=== PATIENT | female | born 1965 | race Caucasian/White ===

== ENCOUNTER 2016-05-26 07:52 | Emergency (ER) | payer BC ==
--- NOTE | 2016-05-26 08:13 | Emergency Department Record ---
History of Present Illness - General Chief complaint: Vomiting Stated complaint: VOMITING/REACTION TO MEDICATION Time Seen by Provider: 05/26/16 08:09 - Related Data Home Medications Medication Instructions Recorded Confirmed Last Taken Topiramate [Topamax] 75 mg PO QHS 02/04/14 05/26/16 05/26/16 Fluticasone Propionate [Flonase 9.9 ml NS ASDIR PRN 01/30/15 05/26/16 05/26/16 Allergy Relief] Norethindrone-E.estradiol-Iron 1 each PO DAILY 01/30/15 05/26/16 05/26/16 [Minastrin 24 Fe Chewable Tab] Amlodipine Besylate 5 mg PO QD tab 03/19/15 05/26/16 05/26/16 Allergies Allergy/AdvReac Type Severity Reaction Status Date / Time amoxicillin Allergy Mild PT UNSURE Verified 10/21/15 17:25 OF REACTION Penicillins [PENICILLINS] Allergy Unknown HIVES Verified 10/21/15 17:25 Sulfa (Sulfonamide Allergy Unknown HIVES Verified 10/21/15 17:25 Antibiotics) [SULFA(SULFONAMIDE ANTIBIOTICS)] doxacillin Allergy Intermediate VOMITING Uncoded 10/21/15 17:23 Past Medical History - SOCIAL HISTORY Smoking Status: Never smoker - RESPIRATORY Hx Respiratory Disorders: Yes Hx Bronchitis: Yes (2012) - CARDIOVASCULAR Hx Cardio Disorders: Yes Hx Hypertension: Yes - NEURO Hx Neuro Disorders: Yes Hx Dizziness: Yes (had therapy after an inner ear problem) Hx Headaches: Yes Hx of Migraines: Yes - GI Hx GI Disorders: No - Hx Genitourinary Disorders: No Comment:: lmp 'years ago'; but on bcp last 3 years to control irregular bleeding - ENDOCRINE Hx Endocrine Disorders: No - MUSCULOSKELETAL Hx Musculoskeletal Disorders: Yes Hx Arthritis: Yes (?knee rt) - PSYCH Hx Psych Problems: Yes Hx Anxiety: Yes - HEMATOLOGY/ONCOLOGY Hx Hematology/Oncology Disorders: No Family Medical History Hx Cancer: Father, Mother Hx Diabetes: Mother Disposition Forms: Patient Portal Access
--- NOTE | 2016-05-26 08:26 | Emergency Department Record ---
History of Present Illness - General Chief complaint: Vomiting Stated complaint: VOMITING/REACTION TO MEDICATION Time Seen by Provider: 05/26/16 08:09 Mode of Arrival: Ambulatory - History of Present Illness Initial comments: Patient had a infected furuncle on her right chin and seen Kaylyn and she expressed it about 20 days and she had 10 days of levaquin it was doing better and than started to come back and 7 days ago restarted on levaquin 750mg and she became nauseated and tod to cut it half and still nauseated and 2 days ago she stopped the levaquin and she had diarrhea times one today and times one yesterday and vomited times one today. She feels the furuncle is coming back and she is nauseated. Onset/Timin -: Week(s) Improves with: Medication Worsens with: None Context: Recent anitbiotic use Associated Symptoms: Denies other symptoms - Related Data Home Medications Medication Instructions Recorded Confirmed Last Taken Topiramate [Topamax] 75 mg PO QHS 02/04/14 05/26/16 05/26/16 Fluticasone Propionate [Flonase 9.9 ml NS ASDIR PRN 01/30/15 05/26/16 05/26/16 Allergy Relief] Norethindrone-E.estradiol-Iron 1 each PO DAILY 01/30/15 05/26/16 05/26/16 [Minastrin 24 Fe Chewable Tab] Amlodipine Besylate 5 mg PO QD tab 03/19/15 05/26/16 05/26/16 Previous Rx's Medication Instructions Recorded Clindamycin HCl [Cleocin HCl] 300 mg PO TID #30 capsule 05/26/16 Ondansetron HCl [Zofran] 8 mg PO Q6HR #15 tablet 05/26/16 Allergies Allergy/AdvReac Type Severity Reaction Status Date / Time amoxicillin Allergy Mild PT UNSURE Verified 10/21/15 17:25 OF REACTION Penicillins [PENICILLINS] Allergy Unknown HIVES Verified 10/21/15 17:25 Sulfa (Sulfonamide Allergy Unknown HIVES Verified 10/21/15 17:25 Antibiotics) [SULFA(SULFONAMIDE ANTIBIOTICS)] doxacillin Allergy Intermediate VOMITING Uncoded 10/21/15 17:23 Travel Screening - Travel/Exposure Within Last 30 Days Have you traveled within the last 30 days?: No - Travel/Exposure Within Last Year Have you traveled outside the [place] in the last year?: No - Additonal Travel Details Have you been exposed to anyone with a communicable illness?: No - Travel Symptoms Symptom Screening: None Review of Systems Reviewed: No additional complaints except as noted below Constitutional: Reports: As per HPI. Denies: Chills, Fever, Malaise, Night sweats, Weakness, Weight change Eyes: Reports: As per HPI. Denies: Eye discharge, Eye pain, Photophobia, Vision change ENT: Reports: As per HPI. Denies: Congestion, Dental pain, Ear pain, Epistaxis , Hearing loss, Throat pain Respiratory: Reports: As per HPI. Denies: Cough, Dyspnea, Hemoptysis, Stridor, Wheezes Cardiovascular: Reports: As per HPI. Denies: Arrhythmia, Chest pain, Dyspnea on exertion, Edema, Murmurs, Orthopnea, Palpitations, Paroxysmal nocturnal dyspnea, Rheumatic Fever, Syncope Endocrine: Reports: As per HPI. Denies: Fatigue, Heat or cold intolerance, Polydipsia, Polyuria Gastrointestinal: Reports: As per HPI. Denies: Abdominal pain, Constipation, Diarrhea, Hematemesis, Hematochezia, Melena, Nausea, Vomiting Genitourinary: Reports: As per HPI. Denies: Abnormal menses, Discharge, Dyspareunia, Dysuria, Frequency, Hematuria, Incontinence, Retention, Urgency Musculoskeletal: Reports: As per HPI. Denies: Arthralgia, Back pain, Gout, Joint swelling, Myalgia, Neck pain Skin: Reports: As per HPI. Denies: Bruising, Change in color, Change in hair/ nails, Lesions, Pruritus, Rash Neurological: Reports: As per HPI. Denies: Abnormal gait, Confusion, Headache, Numbness, Paresthesias, Seizure, Tingling, Tremors, Vertigo, Weakness Psychiatric: Reports: As per HPI. Denies: Anxiety, Auditory hallucinations, Depression, Homicidal thoughts, Suicidal thoughts, Visual hallucinations Hematological/Lymphatic: Reports: As per HPI. Denies: Anemia, Blood Clots, Easy bleeding, Easy bruising, Swollen glands Past Medical History - SOCIAL HISTORY Smoking Status: Never smoker - RESPIRATORY Hx Respiratory Disorders: Yes Hx Bronchitis: Yes (2012) - CARDIOVASCULAR Hx Cardio Disorders: Yes Hx Hypertension: Yes - NEURO Hx Neuro Disorders: Yes Hx Dizziness: Yes (had therapy after an inner ear problem) Hx Headaches: Yes Hx of Migraines: Yes - GI Hx GI Disorders: No - Hx Genitourinary Disorders: No Comment:: lmp 'years ago'; but on bcp last 3 years to control irregular bleeding - ENDOCRINE Hx Endocrine Disorders: No - MUSCULOSKELETAL Hx Musculoskeletal Disorders: Yes Hx Arthritis: Yes (?knee rt) - PSYCH Hx Psych Problems: Yes Hx Anxiety: Yes - HEMATOLOGY/ONCOLOGY Hx Hematology/Oncology Disorders: No Family Medical History Hx Cancer: Father, Mother Hx Diabetes: Mother Physical Exam - General General Appearance: Alert, Oriented x3, Cooperative, No acute distress - Head Head exam: Normal inspection - Eye Eye exam: Normal appearance, PERRL Pupils: Normal accommodation - ENT ENT exam: Normal exam, Mucous membranes moist, Normal external ear exam, Normal orophraynx, TM's normal bilaterally Ear exam: Normal external inspection. negative: External canal tenderness Nasal Exam: Normal inspection. negative: Discharge, Sinus tenderness Mouth exam: Normal external inspection, Tongue normal Teeth exam: Normal inspection. negative: Dental caries Throat exam: Normal inspection. negative: Tonsillar erythema, Tonsillar exudate - Neck Neck exam: Normal inspection, Full ROM. negative: Tenderness - Respiratory Respiratory exam: Normal lung sounds bilaterally. negative: Respiratory distress - Cardiovascular Cardiovascular Exam: Regular rate, Normal rhythm, Normal heart sounds - GI/Abdominal GI/Abdominal exam: Soft, Normal bowel sounds. negative: Tenderness - Rectal Rectal exam: Deferred - exam: Deferred - Extremities Extremities exam: Normal inspection, Full ROM, Normal capillary refill. negative: Tenderness - Back Back exam: Reports: Normal inspection, Full ROM. Denies: Muscle spasm, Rash noted, Tenderness - Neurological Neurological exam: Alert, Normal gait, Oriented X3, Reflexes normal - Psychiatric Psychiatric exam: Normal affect, Normal mood - Skin Skin exam: Dry, Warm, Other (red spot on the chin small and tender) Course Vital Signs 05/26/16 08:05 Temperature 97.7 F Pulse Rate 84 Respiratory 20 Rate Blood Pressure 137/80 Pulse Ox 99 - Reevaluation(s) Reevaluation #1: off work today. 05/26/16 09:40 05/26/16 09:42 Reevaluation #2: patient is feeling better . 05/26/16 09:42 Medical Decision Making - Lab Data Result diagrams: 05/26/16 09:00 05/26/16 09:00 Disposition Clinical Impression: Furuncle of face Disposition: Home, Self-Care Condition: (1) Good Instructions: Acute Nausea and Vomiting (ED), Furunculosis and Carbunculosis ( ED) Additional Instructions: follow up with Kaylyn in 5-6 days Prescriptions: Ondansetron HCl [Zofran] 8 mg PO Q6HR #15 tablet Clindamycin HCl [Cleocin HCl] 300 mg PO TID #30 capsule Forms: Patient Portal Access Time of Disposition: 08:48
[2016-05-26] MEDS ORDERED: CEFTRIAXONE SODIUM 1 GM in 0.9 % SODIUM CHLORIDE 100ML 100 ML IVPB ONE (08:37)
[2016-05-26] MEDS ORDERED: ONDANSETRON HCL IV 4 MG/2 ML VIAL IVP ONE (08:38)
[2016-05-26] MEDS ORDERED: 0.9 % SODIUM CHLORIDE 1000ML 1,000 ML IV SCH (08:45)
[2016-05-26 09:04] LABS: BASO % 0.5 % (0-6); EOS % 7.5 % (0-6); GRAN % 72.8 % (47-80); HEMATOCRIT 40.3 % (35.0-47.0); HEMOGLOBIN 13.7 gm/dl (11.6-16.0); LYMPH % 10.8 % (16-45); MEAN CORPUSCULAR HEMOGLOBIN 32.3 pg (27-33); MEAN PLATELET VOLUME 8.6 fl (7.4-10.4); MONO % 8.4 % (0-9); PLATELET COUNT 203 K/uL (130-400); RED BLOOD COUNT 4.24 M/uL (3.80-5.40); RED CELL DISTRIBUTION WIDTH 12.8 % (11.5-14.5); WHITE BLOOD COUNT W/O DIFF 4.2 K/uL (4.2-12.2)
[2016-05-26 09:16] LABS: ANION GAP 9.2 (7-16); CARBON DIOXIDE 19.8 mmol/L (22-30); CREATININE 1.1 mg/dL (0.52-1.04)
== END 2016-05-26 10:17 | disposition home or self-care (01) ==
LOC: ER 07:52
DX: L02.02 Furuncle of face (principal); R11.2 Nausea with vomiting, unspecified; R19.7 Diarrhea, unspecified
CPT/HCPCS: 99284 ×2; 96365; 96375; 96361; 85025; 80048; J2405; J7030

== ENCOUNTER 2016-08-26 10:30 | Day surgery (SDC) | payer BC ==
[~2016-08-26 10:30] MED LIST: ACETAMINOPHEN 1000MG/100 ML PREMIX IV ONE
[2016-08-26] MEDS ORDERED: HYDROMORPHONE HCL 2 MG/ML VIAL IV ONE (15:02)
[2016-08-26] MEDS ORDERED: BETAMETHASONE 6 MG/1 ML 5ML VIAL IM ONE (15:02)
[2016-08-26] MEDS ORDERED: HYDROCODONE/APAP 7.5/325MG TABLET PO ONE (15:02)
[2016-08-26] MEDS ORDERED: BUPIVACAINE 0.25% W/EPI MPF 30ML VIAL IVP ONE (15:02)
[2016-08-26] MEDS ORDERED: LIDOCAINE 2% MDV (20MG/ML) 20ML VIAL IV ONE (15:14)
[2016-08-26] MEDS ORDERED: FENTANYL PF 100MCG/2ML VIAL IV ONE (15:14)
[2016-08-26] MEDS ORDERED: PROPOFOL 10 MG/ML VIAL IV ONE (15:14)
--- NOTE | 2016-08-27 17:07 | Operative Note ---
DATE OF SURGERY: 08/26/2016 REFERRING PHYSICIAN: Laura Avina MD, FACP PREOPERATIVE DIAGNOSIS: Adhesive capsulitis of the left shoulder. POSTOPERATIVE DIAGNOSIS: Adhesive capsulitis of the left shoulder. OPERATIVE PROCEDURES: 1. Manipulation under anesthesia, left shoulder. 2. Injection, left shoulder. DESCRIPTION: This 51-year-old female was taken to the operating room and placed in the supine position on the operating room table where general anesthetic was administered. Once this had been accomplished, the shoulder was gently taken through range of motion. We found that she had approximately 70 degrees of abduction and approximately 120 degrees of forward flexion, adduction to approximately 30 degrees, and extension to approximately 45 degrees. Subsequently, the glenohumeral joint was stabilized, and gentle manipulation of the glenohumeral joint was accomplished to 120 degrees of abduction, 180 degrees of flexion, 100 degrees of external rotation, 90 degrees of internal rotation, and full adduction and extension to approximately 60 degrees. The anterior aspect of the shoulder was then prepped with alcohol and a 22-gauge spinal needle easily advanced into the glenohumeral joint. Subsequently, 2 mL of Celestone Soluspan, 4 mL of 0.25% Marcaine with epinephrine was injected without difficulty, and the sterile bandage was applied. Patient was subsequently taken to the recovery room in satisfactory condition. GROSS PATHOLOGY: This patient demonstrated a significant amount of stiffness of the left shoulder, which could not be rectified with physical therapy. Patient subsequently underwent manipulation as described above. CC: LAURA AVINA MD, FACP [facility]
== END 2016-08-26 13:35 | disposition home or self-care (01) ==
LOC: SUR 10:30
PROVIDERS: ATTEND Orthopaedic Surgery
DX: M75.02 Adhesive capsulitis of left shoulder (principal); I10 Essential (primary) hypertension
CPT/HCPCS: 23700; 20610; 01620; 81025; J3010; J1170

== ENCOUNTER 2016-11-13 13:04 | Emergency (ER) | payer BC ==
--- NOTE | 2016-11-13 13:43 | Emergency Department Record ---
History of Present Illness - General Stated Complaint: sinus congestion,dizzy,nausia Time Seen by Provider: 11/13/16 13:40 Source: Patient Mode of Arrival: Ambulatory Limitations: No limitations - History of Present Illness Initial Comments: 51 yo female presents to ED with a CC of sinus congestion symptoms for the past several days since returning from [facility] 1 week ago. Patient reports symptoms of congestion, dizziness, and generalized weakness. Patient also reports "plugged ears". Patient denies fevers, chills, cough, or sore throat symptoms. MD Complaint: Nasal congestion, Sinus pain Onset/Timin -: Days(s) Severity: Moderate Quality: Aching Consistency: Constant Improves With: Nothing Worsens With: Nothing Context: Recent travel Associated Symptoms: Denies other symptoms Treatments Prior to Arrival: Other (Allergy medications) - Related Data Home Medications Medication Instructions Recorded Confirmed Last Taken Topiramate [Topamax] 75 mg PO QHS 02/04/14 05/26/16 05/26/16 Fluticasone Propionate [Flonase 9.9 ml NS ASDIR PRN 01/30/15 05/26/16 05/26/16 Allergy Relief] Norethindrone-E.estradiol-Iron 1 each PO DAILY 01/30/15 05/26/16 05/26/16 [Minastrin 24 Fe Chewable Tab] Amlodipine Besylate 5 mg PO QD tab 03/19/15 05/26/16 05/26/16 Previous Rx's Medication Instructions Recorded Clindamycin HCl [Cleocin HCl] 300 mg PO TID #30 capsule 05/26/16 Ondansetron HCl [Zofran] 8 mg PO Q6HR #15 tablet 05/26/16 Azithromycin [Zithromax] 250 mg PO DAILY #6 tab 11/13/16 Allergies Allergy/AdvReac Type Severity Reaction Status Date / Time amoxicillin Allergy Mild PT UNSURE Verified 10/21/15 17:25 OF REACTION Penicillins [PENICILLINS] Allergy Unknown HIVES Verified 10/21/15 17:25 Sulfa (Sulfonamide Allergy Unknown HIVES Verified 10/21/15 17:25 Antibiotics) [SULFA(SULFONAMIDE ANTIBIOTICS)] doxacillin Allergy Intermediate VOMITING Uncoded 10/21/15 17:23 Review of Systems Constitutional: Reports: Weakness. Denies: Chills, Fever, Malaise, Night sweats Eyes: Denies: Eye discharge, Eye pain ENT: Reports: Congestion. Denies: Ear pain, Epistaxis Respiratory: Denies: Cough, Dyspnea Cardiovascular: Denies: Chest pain Endocrine: Denies: Fatigue, Heat or cold intolerance Gastrointestinal: Denies: Abdominal pain, Nausea, Vomiting Genitourinary: Denies: Incontinence, Retention Musculoskeletal: Denies: Arthralgia, Back pain Skin: Denies: Bruising, Change in color Neurological: Denies: Abnormal gait, Confusion, Seizure Psychiatric: Denies: Anxiety Hematological/Lymphatic: Denies: Anemia, Blood Clots Past Medical History - SOCIAL HISTORY Smoking Status: Never smoker - RESPIRATORY Hx Respiratory Disorders: Yes Hx Bronchitis: Yes (2013) - CARDIOVASCULAR Hx Cardio Disorders: Yes Hx Hypertension: Yes Hx Irregular Heartbeat: Yes (REG/IREEG HEARTBEAT) - NEURO Hx Neuro Disorders: Yes Hx Dizziness: Yes (had therapy after an inner ear problem) Hx Headaches: Yes Hx of Migraines: Yes - GI Hx GI Disorders: No - Hx Genitourinary Disorders: No Comment:: lmp 'years ago'; but on bcp last 3 years to control irregular bleeding - ENDOCRINE Hx Endocrine Disorders: No - MUSCULOSKELETAL Hx Musculoskeletal Disorders: Yes Hx Arthritis: Yes (LEFT SHOULDER AND OTHER JOINTS) Comment:: CAN'T MOVE LEFT SHOULDER - PSYCH Hx Psych Problems: Yes Hx Anxiety: Yes - HEMATOLOGY/ONCOLOGY Hx Hematology/Oncology Disorders: No Family Medical History Hx Cancer: Father, Mother Hx Diabetes: Mother Physical Exam - General General Appearance: Alert, Oriented x3, Cooperative, No acute distress Limitations: No limitations - Head Head exam: Atraumatic, Normocephalic, Normal inspection Head exam detail: negative: Abrasion, Contusion, Stevenson's sign, General tenderness, Hematoma, Laceration - Eye Eye exam: Normal appearance. negative: Conjunctival injection, Periorbital swelling, Periorbital tenderness, Scleral icterus - ENT Ear exam: Other (TMs appear clear, mild amount of fluid behind the TMs bilaterally). negative: Auricular hematoma, Auricular trauma Nasal Exam: negative: Active bleeding, Discharge, Dried blood Mouth exam: negative: Drooling, Laceration, Muffled voice, Tongue elevation - Neck Neck exam: Normal inspection. negative: Meningismus, Tenderness - Respiratory Respiratory exam: Normal lung sounds bilaterally. negative: Rales, Respiratory distress, Rhonchi, Stridor - Cardiovascular Cardiovascular Exam: Regular rate, Normal rhythm, Normal heart sounds - GI/Abdominal GI/Abdominal exam: Soft. negative: Rebound, Rigid, Tenderness - Rectal Rectal exam: Deferred - exam: Deferred - Extremities Extremities exam: Normal inspection. negative: Pedal edema, Tenderness - Back Back exam: Denies: CVA tenderness (R), CVA tenderness (L) - Neurological Neurological exam: Alert, Normal gait, Oriented X3 - Psychiatric Psychiatric exam: Normal affect, Normal mood - Skin Skin exam: Normal color. negative: Abrasion Type of lesion: negative: abrasion Course - Reevaluation(s) Reevaluation #1: 11/13/16 13:58 Symptoms appear to be either viral vs. allergic in nature, will prescribe Zithromax to fill if the patient's symptoms fail to improve with symptomatic treatment in 48-72 hours. Disposition Disposition: Discharge Clinical Impression: URI (upper respiratory infection) Qualifiers: URI type: unspecified URI Qualified Code(s): J06.9 - Acute upper respiratory infection, unspecified Disposition: Home, Self-Care Condition: (2) Stable Instructions: Upper Respiratory Infection (ED) Additional Instructions: Return to ED if your symptoms worsen or if you have any concerns. Zithromax as directed. Follow-up with your family doctor in 5-7 days as directed. Prescriptions: Azithromycin [Zithromax] 250 mg PO DAILY #6 tab Time of Disposition: 13:43
== END 2016-11-13 14:07 | disposition home or self-care (01) ==
LOC: ER 13:04
DX: J06.9 Acute upper respiratory infection, unspecified (principal)
CPT/HCPCS: 99282

== ENCOUNTER 2017-01-11 18:46 | Emergency (ER) | payer BC ==
--- NOTE | 2017-01-11 19:06 | Emergency Department Record ---
History of Present Illness - General Chief Complaint: Arrythmia/Palpitations Stated Complaint: FLUTTERING HEART Time Seen by Provider: 01/11/17 18:48 Source: Patient Mode of Arrival: Ambulatory Limitations: No limitations - History of Present Illness Initial Comments: 51 yo female presents to ED with a CC of "feeling off all day", reports history of "irregular heart beat" that she was started on a blood pressure medication to slow her palpitations down. Patient denies history of blood thinner medication use. Patient denies chest pain or pressure symptoms, denies shortness of breath or recent illness. Patient reports that she "just feels off , like I'm about to have a migraine or something". Complaint: Irregular heart beat Onset/Timin -: Hour(s) Context: Awoke with symptoms Arrythmia History: Other Associated Symptoms: Denies other symptoms Treatments Prior to Arrival: Other Treatment Prior to Arrival [facility] - Related Data Previous Rx's Medication Instructions Recorded Ondansetron HCl [Zofran] 8 mg PO Q6HR #15 tablet 05/26/16 Allergies Allergy/AdvReac Type Severity Reaction Status Date / Time amoxicillin Allergy Mild PT UNSURE Verified 10/21/15 17:25 OF REACTION Penicillins [PENICILLINS] Allergy Unknown HIVES Verified 10/21/15 17:25 Sulfa (Sulfonamide Allergy Unknown HIVES Verified 10/21/15 17:25 Antibiotics) [SULFA(SULFONAMIDE ANTIBIOTICS)] doxacillin Allergy Intermediate VOMITING Uncoded 10/21/15 17:23 Travel Screening - Travel/Exposure Within Last 30 Days Have you traveled within the last 30 days?: No - Travel/Exposure Within Last Year Have you traveled outside the [place] in the last year?: No - Additonal Travel Details Have you been exposed to anyone with a communicable illness?: No - Travel Symptoms Symptom Screening: None Review of Systems Constitutional: Denies: Chills, Fever, Malaise, Night sweats Eyes: Denies: Eye discharge, Eye pain ENT: Denies: Congestion, Ear pain, Epistaxis Respiratory: Denies: Cough, Dyspnea Cardiovascular: Reports: Palpitations. Denies: Chest pain, Dyspnea on exertion , Edema Endocrine: Denies: Fatigue, Heat or cold intolerance Gastrointestinal: Denies: Abdominal pain, Nausea, Vomiting Genitourinary: Denies: Incontinence, Retention Musculoskeletal: Denies: Arthralgia, Back pain Skin: Denies: Bruising, Change in color Neurological: Denies: Abnormal gait, Confusion, Headache Psychiatric: Reports: Anxiety Hematological/Lymphatic: Denies: Anemia, Blood Clots Past Medical History - SOCIAL HISTORY Smoking Status: Never smoker Alcohol Use: None Drug Use: None - RESPIRATORY Hx Respiratory Disorders: Yes Hx Bronchitis: Yes (2012) - CARDIOVASCULAR Hx Cardio Disorders: Yes Hx Hypertension: Yes Hx Irregular Heartbeat: Yes (REG/IREEG HEARTBEAT) - NEURO Hx Neuro Disorders: Yes Hx Dizziness: Yes (had therapy after an inner ear problem) Hx Headaches: Yes Hx of Migraines: Yes - GI Hx GI Disorders: No - Hx Genitourinary Disorders: No Comment:: lmp 'years ago'; but on bcp last 3 years to control irregular bleeding - ENDOCRINE Hx Endocrine Disorders: No - MUSCULOSKELETAL Hx Musculoskeletal Disorders: Yes Hx Arthritis: Yes (LEFT SHOULDER AND OTHER JOINTS) Comment:: CAN'T MOVE LEFT SHOULDER - PSYCH Hx Psych Problems: Yes Hx Anxiety: Yes - HEMATOLOGY/ONCOLOGY Hx Hematology/Oncology Disorders: No Family Medical History Any Significant Family History?: No Hx Cancer: Father, Mother Hx Diabetes: Mother Physical Exam - General General Appearance: Alert, Oriented x3, Cooperative, Mild distress, Anxious - Head Head exam: Atraumatic, Normocephalic, Normal inspection Head exam detail: negative: Abrasion, Contusion, Stevenson's sign, General tenderness, Hematoma, Laceration - Eye Eye exam: Normal appearance. negative: Conjunctival injection, Periorbital swelling, Periorbital tenderness, Scleral icterus - ENT Ear exam: negative: Auricular hematoma, Auricular trauma Nasal Exam: negative: Active bleeding, Discharge, Dried blood, Foreign body Mouth exam: negative: Drooling, Laceration, Muffled voice, Tongue elevation - Neck Neck exam: Normal inspection. negative: Meningismus, Tenderness - Respiratory Respiratory exam: Normal lung sounds bilaterally. negative: Rhonchi, Stridor, Wheezes - Cardiovascular Cardiovascular Exam: Normal heart sounds, Irregular rhythm, Other (findings are c/w pre-mature beats) - GI/Abdominal GI/Abdominal exam: Soft. negative: Rebound, Rigid, Tenderness - Rectal Rectal exam: Deferred - exam: Deferred - Extremities Extremities exam: Normal inspection. negative: Calf tenderness, Pedal edema, Tenderness - Back Back exam: Denies: CVA tenderness (R), CVA tenderness (L) - Neurological Neurological exam: Alert, Normal gait, Oriented X3 - Psychiatric Psychiatric exam: Anxious - Skin Skin exam: Normal color. negative: Abrasion Type of lesion: negative: abrasion Course Vital Signs 01/11/17 18:57 Temperature 98.9 F Pulse Rate [ 106 H Pulse Ox Probe] Respiratory 20 Rate Blood Pressure 136/84 [Left Arm] Pulse Ox 97 - Reevaluation(s) Reevaluation #1: 01/11/17 19:06 EKG: NSR 95 Normal axis, normal intervals No acute ST-T wave changes are present Unchanged from 11/13/2008 Reevaluation #2: 01/11/17 20:10 Labs reviewed and are grossly unremarkable for an acute process. Patient reassessed and reports that she is feeling much better following Ativan given IV. Patient's PACs are much less as well. Given the duration of symptoms ( this morning, constant), (1) troponin is felt to be sufficient to exclude myocardial injury, and the patient denies any chest pain or JOSHUA symptoms as well. All results were discussed with the patient and she appears stable for discharge at this time. 01/11/17 20:15 Medical Decision Making - Lab Data Result diagrams: 01/11/17 19:14 01/11/17 19:14 Disposition Disposition: Discharge Clinical Impression: PAC (premature atrial contraction) Disposition: Home, Self-Care Condition: (2) Stable Instructions: Premature Atrial Contractions (ED) Additional Instructions: Return to ED if your symptoms worsen or if you have any concerns. Follow-up with your family doctor in 3-5 days as directed. Forms: Patient Portal Access Time of Disposition: 20:15 Quality - Quality Measures Quality Measures: N/A - Blood Pressure Screening Does Patient Have Any of the Following: No Blood Pressure Classification: Pre-Hypertensive BP Reading Systolic Measurement: 136 Diastolic Measurement: 84 Screening for High Blood Pressure: < Pre-Hypertensive BP, F/U Documented > [ [id number]] Pre-Hypertensive Follow-up Interventions: Referral to alternative/primary care provider.
[2017-01-11] MEDS ORDERED: LORAZEPAM 2 MG/ML VIAL IV ONE (19:14)
[2017-01-11] MEDS ORDERED: 0.9 % SODIUM CHLORIDE 1000ML 1,000 ML IV SCH (19:15)
[2017-01-11 19:25] LABS: BASO % 0.6 % (0-6); EOS % 7.1 % (0-6); HEMATOCRIT 40.7 % (35.0-47.0); HEMOGLOBIN 13.8 gm/dl (11.6-16.0); LYMPH % 20.5 % (16-45); MEAN CELL VOLUME 93.6 fl (81-97); MEAN CORPUSCULAR HEMOGLOBIN 31.7 pg (27-33); MEAN CORPUSCULAR HGB CONC 33.9 g/dl (32-36); MEAN PLATELET VOLUME 8.9 fl (7.4-10.4); MONO % 8.8 % (0-9); PLATELET COUNT 225 K/uL (130-400); RED BLOOD COUNT 4.35 M/uL (3.80-5.40); RED CELL DISTRIBUTION WIDTH 12.6 % (11.5-14.5); WHITE BLOOD COUNT W/O DIFF 7.8 K/uL (4.2-12.2)
[2017-01-11 19:36] LABS: ALB/GLOB RATIO 1.4 (1.1-1.8); ALBUMIN 4.3 gm/dL (3.5-5.0); ALKALINE PHOSPHATASE 72 U/L (38-126); ALT/SGPT 32 U/L (9-52); ANION GAP 9.6 (7-16); AST/SGOT 16 U/L (14-36); BILIRUBIN,TOTAL 0.63 mg/dL (0.2-1.3); BLOOD UREA NITROGEN 14 mg/dL (7-17); CARBON DIOXIDE 22.4 mmol/L (22-30); EST GLOMERULAR FILTRATION RATE > 60 ml/min; GLUCOSE,RANDOM 139 mg/dL (70-110); TOTAL PROTEIN 7.3 gm/dL (6.3-8.2)
[2017-01-11 19:52] LABS: TROPONIN I < 0.012 ng/mL (0.00-0.034)
--- NOTE | 2017-01-12 21:26 | RADIOLOGY REPORT ---
EXAM: CHEST 2 VIEWS HISTORY: DIFFICULTY BREATHING. TECHNIQUE: Frontal and lateral views of the chest. COMPARISON: None. FINDINGS: The heart size is normal. The lungs are clear. There is no pneumothorax. IMPRESSION: NEGATIVE CHEST. JOB NUMBER: [id number] MTDD
== END 2017-01-11 20:26 | disposition home or self-care (01) ==
LOC: ER 18:46
DX: I49.1 Atrial premature depolarization (principal); R06.00 Dyspnea, unspecified; I10 Essential (primary) hypertension
CPT/HCPCS: 99284 ×2; 96374; 85025; 84484; 80053; 84443; 71020; 93005; 93010; J2060; J7030

== ENCOUNTER 2017-06-20 08:35 | Day surgery (SDC) | payer BC ==
[2017-06-20] MEDS ORDERED: LIDOCAINE 2% MDV (20MG/ML) 20ML VIAL IV ONE (08:36)
[2017-06-20] MEDS ORDERED: PROPOFOL 10 MG/ML VIAL IV ONE (08:36)
--- NOTE | 2017-06-22 10:19 | Operative Note ---
DATE OF SURGERY: 06/20/2017 OPERATION: COLONOSCOPY to the cecum. INDICATION: Colorectal cancer screening. ANESTHESIA: Intravenous sedation was administered by the department of anesthesiology and included Diprivan titrated to effect. PROCEDURE: Following informed consent from this alert individual including a discussion of the risks and benefits of the procedure and an opportunity for the patient to ask questions, the patient was in the left lateral decubitus position. A digital rectal examination was performed. No abnormalities were noted. Following this, the Olympus [id number] video colonoscope was inserted into the rectum without resistance. The rectal mucosa had a normal appearance with normal folds and distensibility. The colonoscope was advanced up through the colon to the level of the cecum without much difficulty. Throughout the bowel the mucosa appeared normal, the folds were normal, and the bowel was fairly well distensible. The cecum was defined by noting the appendiceal orifice and ileocecal valve. Retroflexion in the cecum was endoscopically unremarkable. The colon preparation was good. From the base of the cecum, the colonoscope was then withdrawn. No abnormalities were noted upon withdrawal. Retroflexion in the rectum was likewise unremarkable. The endoscope was straightened and removed. The patient tolerated the procedure well and was returned to the recovery area in stable condition. IMPRESSION: Unremarkable colonoscopy to the cecum. RECOMMENDATIONS: The patient was advised to have recheck colonoscopy in 10 years' time or sooner if problems arise. Followup will be with Dr. Laura Avina. As always, thank you for allowing me to participate in the care of your patient. CC: LAURA AVINA MD, FACP [facility]
== END 2017-06-20 10:26 | disposition home or self-care (01) ==
LOC: HOP 08:35
PROVIDERS: ATTEND Internal Medicine Gastroenterology
DX: Z12.11 Encounter for screening for malignant neoplasm of colon (principal); I10 Essential (primary) hypertension

== ENCOUNTER 2018-09-04 09:00 | Day surgery (SDC) | payer BC ==
[2018-09-04] MEDS ORDERED: LIDOCAINE 2% MDV (20MG/ML) 20ML VIAL IV ONE (09:01)
[2018-09-04] MEDS ORDERED: PROPOFOL 10 MG/ML VIAL IV ONE (09:01)
[2018-09-04] MEDS ORDERED: FENTANYL PF 100MCG/2ML VIAL IV ONE (09:01)
--- NOTE | 2018-09-05 11:20 | Operative Note ---
DATE OF SURGERY: 09/04/2018 OPERATION: ESOPHAGOGASTRODUODENOSCOPY with multiple biopsies. INDICATION: Episodic pain with swallowing pointing to the upper chest region. The cause of this remains unclear. She denies any true pyrosis. She complains of some very mild infrequent dysphagia to a solid. Upper endoscopy is performed at this time for further evaluation. ANESTHESIA: Intravenous sedation was administered by the department of anesthesiology and included Diprivan titrated to effect. PROCEDURE: Following informed consent from this alert individual, including a discussion of the risks and benefits of the procedure and an opportunity for the patient to ask questions, the patient was in the left lateral decubitus position. The Olympus [id number] video endoscope was inserted into the posterior pharynx and esophagus without difficulty. The posterior pharynx and vocal cords appeared to be normal. The esophagus throughout appeared to be normal. There was an episode of perhaps short-lived spasm in the lower esophageal segment but otherwise, the mucosa throughout the esophagus appeared to be normal. Some random biopsies were taken to rule out the remote possibility of eosinophilic esophagitis. The stomach was entered. The gastric fundus and pars media had a normal appearance with normal folds and distensibility. The antrum evaluated circumferentially demonstrated some focal mild erythema without ulcerations or erosions. Biopsies were taken. The pylorus was patent. The duodenal bulb, sweep and descending duodenum were examined in a serial fashion and found to be normal. The endoscope was then withdrawn back into the body of the stomach. Retroflexion accomplished following air insufflation failed to demonstrate any changes. The endoscope was straightened and withdrawn. Again no esophageal mucosa abnormalities were appreciated upon withdrawal. The instrument was removed. The patient tolerated the procedure well and was returned to the recovery area in stable condition. IMPRESSION: 1. Normal appearing posterior pharynx and esophagus with perhaps some mild spasm noted. Biopsies taken from the esophagus to rule out the remote possibility of eosinophilic esophagitis. 2. Mild antral gastritis with erythema noted in the prepyloric region. Biopsies taken. RECOMMENDATION: Further recommendations will be forthcoming pending results of pathology obtained today. The patient was advised she can follow up if her symptoms should persist or worsen. Followup will also be with Dr. Avina. As always, thank you for allowing me to participate in the care of your patient. CC: LAURA AVINA MD, FACP [facility]
== END 2018-09-04 10:52 | disposition home or self-care (01) ==
LOC: HOP 09:00
PROVIDERS: ATTEND Internal Medicine Gastroenterology
DX: R13.10 Dysphagia, unspecified (principal); K29.70 Gastritis, unspecified, without bleeding; I10 Essential (primary) hypertension
CPT/HCPCS: 81025

== ENCOUNTER 2018-09-21 11:25 | Day surgery (SDC) | payer BC ==
[~2018-09-21 11:25] MED LIST changes: +ACETAMINOPHEN 1,000 MG/100 ML BTL IVPB ONE; -ACETAMINOPHEN 1000MG/100 ML PREMIX IV ONE
[2018-09-21] MEDS ORDERED: LIDOCAINE 2% MDV (20MG/ML) 20ML VIAL IV ONE (11:26)
[2018-09-21] MEDS ORDERED: PROPOFOL 10 MG/ML VIAL IV ONE (11:26)
[2018-09-21] MEDS ORDERED: KETAMINE HCL 100MG/1ML VIAL INJ ONE (11:26)
[2018-09-21] MEDS ORDERED: KETOROLAC 30 MG/ML VIAL IVP ONE (11:26)
[2018-09-21] MEDS ORDERED: RINGERS SOLUTION,LACTATED 1,000 ML IV ONE ×3 (12:00→14:01)
[2018-09-21] MEDS ORDERED: BUPIVACAINE 0.25% W/EPI MPF 30ML VIAL SQ ONE (13:50)
--- NOTE | 2018-09-22 08:50 | Operative Note ---
DATE OF SURGERY: 09/21/2018 SURGEON: Yogesh Fox DO PREOPERATIVE DIAGNOSES: 1. Chondromalacia of the right knee. 2. Chondrocalcinosis of right knee. POSTOPERATIVE DIAGNOSES: 1. Chondromalacia of medial femoral condyle, lateral femoral condyle, and patella, right knee. 2. Chondrocalcinosis, right knee. OPERATION: Arthroscopic chondroplasty of the medial femoral condyle, lateral femoral condyle, and patella, right knee. DESCRIPTION OF PROCEDURE: This 53-year-old female was taken to the operating room and placed in the supine position on the operating room table. General anesthesia was induced. The right lower extremity was elevated, prepped with Hibiclens and draped in the usual sterile fashion, exsanguinated, and the tourniquet inflated to 300 mmHg. Arthroscopic knee salvador applied. An inferolateral portal was established for the 4 mm arthroscope, and initial evaluation of the joint demonstrated normal appearance of the suprapatellar pouch. There were loose joint bodies present throughout the knee. These were broken off cartilaginous fragments. The view of the patella demonstrated severe grade 3 change with a small area of grade 4 defect in the center of the medial facet. The medial ridge also looked quite severe. The trochlea appeared relatively spared. The medial compartment was entered, and advanced degenerative disease grade 3 of the medial compartment was identified. No meniscal tears were identified. Probing of the meniscus demonstrated a patch of chondrocalcinosis on the undersurface of the medial meniscus at about the 2-o'clock position. We tried to dislodge it but were unable to do so. The medial femoral condyle was probed after chondroplasty and no further loose fragments of articular cartilage were identified. The intracondylar notch appeared to be normal. The lateral compartment was entered, and a patch of chondrocalcinosis was present on the lateral femoral condyle the center of the weightbearing surface. We probed this and found there to be deep full-thickness cracks all the way to the articular surface and a small portion was detached from the bone. This was an area of about 0.5 cm. We smoothed the loose fragments of articular cartilage from the medial femoral condyle and probed it and found to be stable. There was also a patch of chondrocalcinosis on the lateral meniscus at about the 2-o'clock position in the superior aspect of the meniscus. The joint was then copiously irrigated and suctioned. All areas reexamined. No additional findings were present and the joint was suctioned, the instruments were removed. The portals were infiltrated with 0.25% Marcaine with epinephrine. Sterile dressings applied, tourniquet and knee salvador released, and the patient taken to the recovery room in satisfactory condition. CC: LAURA COTA MD, FACP [facility]
== END 2018-09-21 14:45 | disposition home or self-care (01) ==
LOC: SUR 11:25
PROVIDERS: ATTEND Orthopaedic Surgery
DX: M94.261 Chondromalacia, right knee (principal); M11.261 Other chondrocalcinosis, right knee; I10 Essential (primary) hypertension; R42 Dizziness and giddiness; I48.91 Unspecified atrial fibrillation
CPT/HCPCS: 29877; 01400; 81025; J1885; J3490; J7120

== ENCOUNTER 2019-06-03 17:39 | Emergency (ER) | payer BC ==
--- NOTE | 2019-06-03 18:20 | Emergency Department Record ---
History of Present Illness - General Chief complaint: Cold Stated complaint: CHEST CONGESTION,HEADACHE Time Seen by Provider: 06/03/19 17:44 Source: Patient Mode of Arrival: Ambulatory Limitations: No limitations - History of Present Illness Initial comments: pt started getting sick yesterday w body aches, slight sore throat congestion, slight cough and pressure in her sinuses. she was unsure if it was sinusitis or the flu. 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 MD complaint: Sore throat, Other Onset/Timin -: Days(s) Consistency: Getting worse Improves with: None Worsens with: None Associated Symptoms: Cough, Fever, Rhinorrhea, Sore throat - Related Data Home Medications Medication Instructions Recorded Confirmed Last Taken Hydrocodone/Acetaminophen [[place] 1 each PO Q4HR PRN 06/03/19 06/03/19 Unknown 5-325 Tablet] Topiramate [Topamax] 100 mg PO DAILY 06/03/19 06/03/19 06/03/19 Allergies Allergy/AdvReac Type Severity Reaction Status Date / Time amoxicillin Allergy Mild PT UNSURE Verified 06/03/19 17:44 OF REACTION Penicillins [PENICILLINS] Allergy Unknown HIVES Verified 06/03/19 17:44 Sulfa (Sulfonamide Allergy Unknown HIVES Verified 06/03/19 17:44 Antibiotics) [SULFA(SULFONAMIDE ANTIBIOTICS)] bee pollen Allergy PT UNSURE Verified 06/03/19 17:44 OF REACTION azithromycin AdvReac PT UNSURE Verified 06/03/19 17:44 [From Zithromax Z-Marcelo] OF REACTION doxycycline AdvReac NAUSEA AND Verified 06/03/19 17:44 VOMITING levofloxacin [From Levaquin] AdvReac PT UNSURE Verified 06/03/19 17:44 OF REACTION doxacillin Allergy Intermediate VOMITING Uncoded 09/04/18 09:17 Travel Screening - Travel/Exposure Within Last 30 Days Have you traveled within the last 30 days?: No - Travel/Exposure Within Last Year Have you traveled outside the [place] in the last year?: No - Additonal Travel Details Have you been exposed to anyone with a communicable illness?: No - Travel Symptoms Symptom Screening: None Review of Systems Constitutional: Reports: Chills, Fever ENT: Reports: Congestion Musculoskeletal: Reports: Myalgia Past Medical History - SOCIAL HISTORY Smoking Status: Never smoker Alcohol Use: None Drug Use: None - RESPIRATORY Hx Respiratory Disorders: Yes Hx Bronchitis: Yes (2016) - CARDIOVASCULAR Hx Cardio Disorders: Yes Hx Hypotension: Yes Hx Irregular Heartbeat: Yes (A FIB DX'D CONTROLLED WITH MEDS ON NO THINNERS AT THIS POINT) - NEURO Hx Neuro Disorders: Yes Hx Dizziness: Yes (VERTIGO CONTROLLED WITH TOPOMAX) Hx Headaches: Yes Hx of Migraines: Yes (OCCULAR) - GI Hx GI Disorders: Yes Hx Nausea/Vomiting: Yes (zofran as needed for vertigo) - Hx Genitourinary Disorders: No Comment:: lmp 'years ago'; but on bcp last 3 years to control irregular bleeding - ENDOCRINE Hx Endocrine Disorders: No - MUSCULOSKELETAL Hx Musculoskeletal Disorders: Yes Hx Arthritis: Yes - PSYCH Hx Psych Problems: Yes Hx Anxiety: Yes - HEMATOLOGY/ONCOLOGY Hx Hematology/Oncology Disorders: Yes Hx Anemia: Yes (as a child) Family Medical History Any Significant Family History?: Yes *Cancer Comment: father-prostate, mother-breast, non hodgkins, grandmother- breast cancer Hx Dementia: Grandparents *Diabetes Comment: type 2 Hx HTN: Mother Hx Resp Disorders: Father Physical Exam - General General Appearance: Alert, Oriented x3, Cooperative, Mild distress - Head Head exam: Normal inspection - Eye Eye exam: Normal appearance, PERRL, EOMI Pupils: Normal accommodation - ENT ENT exam: Normal exam, Mucous membranes moist, Normal external ear exam, Normal orophraynx Ear exam: Normal external inspection. negative: External canal tenderness Nasal Exam: Normal inspection. negative: Discharge, Sinus tenderness Mouth exam: Normal external inspection, Tongue normal Teeth exam: Normal inspection. negative: Dental caries Throat exam: Normal inspection. negative: Tonsillar erythema, Tonsillar exudate - Neck Neck exam: Normal inspection, Full ROM. negative: Tenderness - Respiratory Respiratory exam: Normal lung sounds bilaterally. negative: Respiratory distress - Cardiovascular Cardiovascular Exam: Regular rate, Normal rhythm, Normal heart sounds - GI/Abdominal GI/Abdominal exam: Soft, Normal bowel sounds. negative: Tenderness - Rectal Rectal exam: Deferred - exam: Deferred - Extremities Extremities exam: Normal inspection, Full ROM, Normal capillary refill. negative: Tenderness - Back Back exam: Reports: Normal inspection, Full ROM. Denies: Muscle spasm, Rash noted, Tenderness - Neurological Neurological exam: Alert, CN II-XII intact, Normal gait, Oriented X3 - Psychiatric Psychiatric exam: Normal affect, Normal mood - Skin Skin exam: Dry, Intact, Normal color, Warm Course Vital Signs 06/03/19 17:49 Temperature 100.1 F H Pulse Rate 83 Respiratory 20 Rate Blood Pressure 126/69 Pulse Ox 97 Disposition Disposition: Discharge Clinical Impression: URI (upper respiratory infection) Qualifiers: URI type: unspecified viral URI Qualified Code(s): J06.9 - Acute upper respiratory infection, unspecified Disposition: Home, Self-Care Condition: (1) Good Instructions: Cold Symptoms (ED), Upper Respiratory Infection (ED) Additional Instructions: follow up with family doctor. return sooner if worse. take dayquil and nyquil as needed. push fluids Forms: Patient Portal Access, Return to Work/School Quality - Quality Measures Quality Measures: N/A - Blood Pressure Screening Does Patient Have Any of the Following: No Blood Pressure Classification: Pre-Hypertensive BP Reading Systolic Measurement: 126 Diastolic Measurement: 69 Screening for High Blood Pressure: < Pre-Hypertensive BP, F/U Documented > [[id number]] Pre-Hypertensive Follow-up Interventions: Follow-up with rescreen every year.
[2019-06-03 18:21] LABS: INFLUENZA A NEGATIVE (NEGATIVE); INFLUENZA B NEGATIVE (NEGATIVE)
== END 2019-06-03 18:35 | disposition home or self-care (01) ==
LOC: ER 17:39
DX: J06.9 Acute upper respiratory infection, unspecified (principal); R05 Cough; J02.9 Acute pharyngitis, unspecified
CPT/HCPCS: 87400; 99282